=== PATIENT | female | born 1985 | race Caucasian/White ===

== ENCOUNTER 2019-04-26 22:55 | Inpatient (IN) | payer MEDICAID ==
[2019-04-26] MEDS: SOD CHLORIDE 0.9% 1,000 ML IV (23:22)
[2019-04-26] MEDS: HYDROmorphONE 0.5 MG/0.5 ML SYG IV (23:22)
[2019-04-27] MEDS ORDERED: NACL 0.9% 3 ML SYG IV (01:00)
[2019-04-27] MEDS ORDERED: BISACODYL (EC) 5 MG TAB PO (01:00)
[2019-04-27] MEDS ORDERED: ONDANSETRON 4 MG INJ IV (01:00)
[2019-04-27 01:11] LABS: ADD MAN DIFF? NO
[2019-04-27 01:13] LABS: WHITE BLOOD COUNT 14.4 10^3/ul (4.8-10.8)
[2019-04-27 01:13] LABS: BASOPHIL # 0.1 10^3/ul (0.0-0.1); BASOPHILS % 0.3 % (0.0-2.0); EOSINOPHILS # 0.1 10^3/ul (0.0-0.5); EOSINOPHILS % 0.8 % (0.0-7.0); HEMATOCRIT 37.9 % (37.0-47.0); HEMOGLOBIN 13.3 g/dl (12.0-16.0); LYMPHOCYTES # 1.4 10^3/ul (0.8-2.9); LYMPHOCYTES % 9.6 % (15.0-51.0); MEAN CORPUSCULAR HEMOGLOBIN 31.7 pg (29.0-33.0); MEAN CORPUSCULAR HGB CONC 35.1 g/dl (32.0-37.0); MEAN CORPUSCULAR VOLUME 90.5 fl (82.0-101.0); MEAN PLATELET VOLUME 10.1 fl (7.4-10.4); MONOCYTE # 0.9 10^3/ul (0.3-0.9); MONOCYTES % 6.4 % (0.0-11.0); NEUTROPHIL # 11.9 10^3/ul (1.6-7.5); NEUTROPHILS % 82.4 % (39.0-77.0); PLATELET COUNT 227 10^3/UL (140-415); RED BLOOD COUNT 4.19 10^6/ul (4.20-5.40); RED CELL DISTRIBUTION WIDTH 11.8 % (11.5-14.5)
[2019-04-27 01:35] LABS: INR 1.04; PROTIME 13.7 Sec (11.9-14.9); PT RATIO 1.1
[2019-04-27 01:39] LABS: ANION GAP 8 (5-13); BLOOD UREA NITROGEN 15 mg/dl (7-20); CALCIUM 9.1 mg/dl (8.4-10.2); CARBON DIOXIDE 23 mmol/L (21-31); CHLORIDE 106 mmol/L (97-110); CREATININE 0.77 mg/dl (0.44-1.00); Estimated GFR > 60 mL/min (>60); GLUCOSE 137 mg/dl (70-220); POTASSIUM 3.9 mmol/L (3.5-5.1); SODIUM 137 mmol/L (135-144)
[2019-04-27] MEDS: SOD CHLORIDE 0.9% 1,000 ML IV (03:16)
[2019-04-27] MEDS: morphine 2 MG INJ IV (03:57)
[2019-04-27] MEDS: HYDROCODONE/APAP (5/325) TAB PO ×2 (09:01→20:14)
[2019-04-28 05:50] LABS: ADD MAN DIFF? NO
[2019-04-28 05:54] LABS: BASOPHILS % 0.4 % (0.0-2.0); EOSINOPHILS # 0.3 10^3/ul (0.0-0.5); EOSINOPHILS % 3.4 % (0.0-7.0); HEMATOCRIT 36.9 % (37.0-47.0); HEMOGLOBIN 12.7 g/dl (12.0-16.0); LYMPHOCYTES # 3.2 10^3/ul (0.8-2.9); LYMPHOCYTES % 41.7 % (15.0-51.0); MEAN CORPUSCULAR HEMOGLOBIN 31.5 pg (29.0-33.0); MEAN CORPUSCULAR HGB CONC 34.4 g/dl (32.0-37.0); MEAN CORPUSCULAR VOLUME 91.6 fl (82.0-101.0); MEAN PLATELET VOLUME 10.2 fl (7.4-10.4); MONOCYTE # 0.7 10^3/ul (0.3-0.9); MONOCYTES % 9.3 % (0.0-11.0); NEUTROPHIL # 3.4 10^3/ul (1.6-7.5); NEUTROPHILS % 45.1 % (39.0-77.0); PLATELET COUNT 209 10^3/UL (140-415); RED BLOOD COUNT 4.03 10^6/ul (4.20-5.40); RED CELL DISTRIBUTION WIDTH 11.9 % (11.5-14.5)
[2019-04-28 05:54] LABS: WHITE BLOOD COUNT 7.6 10^3/ul (4.8-10.8)
[2019-04-28 06:26] LABS: PHOSPHORUS 3.9 mg/dl (2.5-4.9)
[2019-04-28 06:26] LABS: CHOLESTEROL 140 mg/dl (100-200); HDL CHOLESTEROL 28 mg/dl (34-82); LDL CHOLESTEROL,CALCULATED 93 mg/dl; TRIGLYCERIDES 97 mg/dl (0-149)
[2019-04-28 06:32] LABS: CARBON DIOXIDE 26 mmol/L (21-31); CREATININE 0.75 mg/dl (0.44-1.00); Estimated GFR > 60 mL/min (>60); GLUCOSE 108 mg/dl (70-220); POTASSIUM 4.2 mmol/L (3.5-5.1); SODIUM 138 mmol/L (135-144)
[2019-04-28 07:15] LABS: ANION GAP 6 (5-13); BLOOD UREA NITROGEN 8 mg/dl (7-20); CHLORIDE 106 mmol/L (97-110)
[2019-04-28 07:21] LABS: HEMOGLOBIN A1C 5.4 % (0-5.9)
[2019-04-28] MEDS: HEPARIN 5,000 UNIT/1 ML VIAL SC ×2 (17:53→21:11)
[2019-04-28] MEDS: POLYETHYLENE GLYCOL 17 GM PACKET PO (20:32)
[2019-04-28] MEDS: HYDROCODONE/APAP (5/325) TAB PO (23:20)
[2019-04-29] MEDS: HEPARIN 5,000 UNIT/1 ML VIAL SC ×3 (05:28→22:00)
[2019-04-29 07:16] LABS: ADD MAN DIFF? NO
[2019-04-29 07:21] LABS: WHITE BLOOD COUNT 8.7 10^3/ul (4.8-10.8)
[2019-04-29 07:21] LABS: BASOPHILS % 0.2 % (0.0-2.0); EOSINOPHILS # 0.4 10^3/ul (0.0-0.5); EOSINOPHILS % 4.1 % (0.0-7.0); HEMATOCRIT 39.2 % (37.0-47.0); HEMOGLOBIN 13.5 g/dl (12.0-16.0); LYMPHOCYTES # 2.8 10^3/ul (0.8-2.9); LYMPHOCYTES % 32.5 % (15.0-51.0); MEAN CORPUSCULAR HEMOGLOBIN 31.7 pg (29.0-33.0); MEAN CORPUSCULAR HGB CONC 34.4 g/dl (32.0-37.0); MEAN PLATELET VOLUME 10.3 fl (7.4-10.4); MONOCYTE # 0.8 10^3/ul (0.3-0.9); MONOCYTES % 9.4 % (0.0-11.0); NEUTROPHIL # 4.7 10^3/ul (1.6-7.5); NEUTROPHILS % 53.6 % (39.0-77.0); PLATELET COUNT 227 10^3/UL (140-415); RED BLOOD COUNT 4.26 10^6/ul (4.20-5.40); RED CELL DISTRIBUTION WIDTH 11.9 % (11.5-14.5)
[2019-04-29 07:40] LABS: PHOSPHORUS 4.7 mg/dl (2.5-4.9)
[2019-04-29 07:43] LABS: ANION GAP 7 (5-13); BLOOD UREA NITROGEN 13 mg/dl (7-20); CALCIUM 9.3 mg/dl (8.4-10.2); CARBON DIOXIDE 28 mmol/L (21-31); CHLORIDE 102 mmol/L (97-110); CREATININE 0.86 mg/dl (0.44-1.00); Estimated GFR > 60 mL/min (>60); GLUCOSE 109 mg/dl (70-220); SODIUM 137 mmol/L (135-144)
[2019-04-29] MEDS: POLYETHYLENE GLYCOL 17 GM PACKET PO ×2 (08:22→21:00)
[2019-04-29] MEDS ORDERED: DEXAMETHASONE 4 MG/ML 5 ML INJ (13:57)
[2019-04-29] MEDS ORDERED: NEOSTIGMINE 3 MG/3 ML SYRINGE (13:57)
[2019-04-29] MEDS ORDERED: MIDAZOLAM 1 MG/ML 2 ML INJ (13:57)
[2019-04-29] MEDS ORDERED: PROPOFOL 20 ML (13:57)
[2019-04-29] MEDS ORDERED: EPHEDrine 25 MG/5 ML SYG (13:57)
[2019-04-29] MEDS ORDERED: ONDANSETRON 4 MG INJ (13:57)
[2019-04-29] MEDS ORDERED: ROCURONIUM 50 MG INJ (13:57)
[2019-04-29] MEDS ORDERED: FENTAnyl 50 MCG/ML VIAL ×2 (13:57→20:33)
[2019-04-29] MEDS ORDERED: CEFAZOLIN 1 GM INJ (13:57)
[2019-04-29] MEDS ORDERED: GLYCOPYRROLATE 0.4 MG INJ (13:57)
[2019-04-29] MEDS ORDERED: KETOROLAC 30 MG INJ (14:03)
[2019-04-29] MEDS ORDERED: ROPIVACAINE 0.5 % 30 ML VIAL (14:05)
[2019-04-29] MEDS ORDERED: OXYCODONE/ACETAMINOPHEN (5/325) TAB PO ×2 (14:30)
[2019-04-29] MEDS ORDERED: TRIMETHOBENZAMIDE 100 MG/ML VIAL IM (14:30)
[2019-04-29] MEDS ORDERED: EPHEDrine 25 MG/5 ML SYG IV (14:30)
[2019-04-29] MEDS ORDERED: HYDROmorphONE 1 MG/5 ML IV SYRINGE IV ×3 (14:30)
[2019-04-29] MEDS ORDERED: ONDANSETRON 4 MG INJ IV (14:30)
[2019-04-29] MEDS ORDERED: MEPERIDINE 25 MG INJ IV (14:30)
[2019-04-29] MEDS ORDERED: DIPHENHYDRAMINE 50 MG INJ IV (14:30)
[2019-04-29] MEDS ORDERED: hydrALAzine 20 MG INJ IV (14:30)
[2019-04-29] MEDS ORDERED: ALBUTEROL 0.083% (NEB) 2.5 MG/3 ML AMP HHN (14:30)
[2019-04-29] MEDS ORDERED: MIDAZOLAM 1 MG/ML 2 ML INJ IV (14:30)
[2019-04-29] MEDS ORDERED: FENTAnyl 50 MCG/ML VIAL IV ×3 (14:30)
[2019-04-29] MEDS ORDERED: IPRATROPIUM (NEB) 0.5 MG/2.5 ML AMP HHN (14:30)
[2019-04-29] MEDS ORDERED: LABETALOL HCL 20MG INJ IV (14:30)
[2019-04-29] MEDS: POLYMYXIN/BACITRACIN 1L IRRIG (15:48)
[2019-04-29] MEDS ORDERED: SUGAMMADEX SODIUM 200 MG/2 ML VIAL IV (18:43)
[2019-04-29 19:40] LABS: IMMEDIATE SPIN CROSSMATCH 1 2
[2019-04-29] MEDS ORDERED: morphine 4 MG/ML VIAL IV (21:30)
[2019-04-29] MEDS ORDERED: NACL 0.9% 3 ML SYG IV (21:30)
[2019-04-29] MEDS: CEFAZOLIN 1 GM/50 ML (PMX) 50 ML IVPB (22:16)
[2019-04-29 22:22] LABS: ADD MAN DIFF? NO; BASOPHILS % 0.2 % (0.0-2.0); EOSINOPHILS % 0.1 % (0.0-7.0); HEMATOCRIT 39.9 % (37.0-47.0); HEMOGLOBIN 13.6 g/dl (12.0-16.0); LYMPHOCYTES # 0.8 10^3/ul (0.8-2.9); LYMPHOCYTES % 4.6 % (15.0-51.0); MEAN CORPUSCULAR HEMOGLOBIN 30.8 pg (29.0-33.0); MEAN CORPUSCULAR HGB CONC 34.1 g/dl (32.0-37.0); MEAN CORPUSCULAR VOLUME 90.3 fl (82.0-101.0); MEAN PLATELET VOLUME 9.7 fl (7.4-10.4); MONOCYTE # 0.7 10^3/ul (0.3-0.9); MONOCYTES % 3.7 % (0.0-11.0); PLATELET COUNT 218 10^3/UL (140-415); RED BLOOD COUNT 4.42 10^6/ul (4.20-5.40); RED CELL DISTRIBUTION WIDTH 12.1 % (11.5-14.5)
[2019-04-29 22:22] LABS: WHITE BLOOD COUNT 17.5 10^3/ul (4.8-10.8)
[2019-04-29] MEDS: D5W-0.45 NACL + KCL 20 MEQ 1,000 ML IV (22:44)
[2019-04-30] MEDS: SOD CHLORIDE 0.9% 1,000 ML IV (02:05)
[2019-04-30] MEDS: SOD CHLORIDE 0.9% 500 ML IV (03:57)
[2019-04-30] MEDS ORDERED: SOD CHLORIDE 0.9% 1,000 ML IV (04:00)
[2019-04-30] MEDS: D5W-0.45 NACL + KCL 20 MEQ 1,000 ML IV ×3 (05:24→22:00)
[2019-04-30] MEDS: CEFAZOLIN 1 GM/50 ML (PMX) 50 ML IVPB ×2 (05:24→12:48)
[2019-04-30] MEDS: HEPARIN 5,000 UNIT/1 ML VIAL SC (05:30)
[2019-04-30 06:04] LABS: ADD MAN DIFF? NO
[2019-04-30 06:05] LABS: BASOPHILS % 0.1 % (0.0-2.0); HEMOGLOBIN 11.3 g/dl (12.0-16.0); LYMPHOCYTES # 0.8 10^3/ul (0.8-2.9); MEAN CORPUSCULAR HEMOGLOBIN 30.9 pg (29.0-33.0); MEAN CORPUSCULAR HGB CONC 34.2 g/dl (32.0-37.0); MEAN CORPUSCULAR VOLUME 90.2 fl (82.0-101.0); MEAN PLATELET VOLUME 10.2 fl (7.4-10.4); MONOCYTES % 6.7 % (0.0-11.0); NEUTROPHIL # 13.2 10^3/ul (1.6-7.5); NEUTROPHILS % 87.9 % (39.0-77.0); PLATELET COUNT 197 10^3/UL (140-415); RED BLOOD COUNT 3.66 10^6/ul (4.20-5.40); RED CELL DISTRIBUTION WIDTH 12.6 % (11.5-14.5)
[2019-04-30 06:32] LABS: PHOSPHORUS 2.7 mg/dl (2.5-4.9)
[2019-04-30 06:32] LABS: MAGNESIUM 1.8 mg/dl (1.7-2.5)
[2019-04-30 06:41] LABS: ANION GAP 6 (5-13); BLOOD UREA NITROGEN 11 mg/dl (7-20); CALCIUM 8.2 mg/dl (8.4-10.2); CARBON DIOXIDE 25 mmol/L (21-31); CHLORIDE 106 mmol/L (97-110); CREATININE 0.79 mg/dl (0.44-1.00); Estimated GFR > 60 mL/min (>60); GLUCOSE 182 mg/dl (70-220); POTASSIUM 4.6 mmol/L (3.5-5.1); SODIUM 137 mmol/L (135-144)
[2019-04-30] MEDS: HYDROCODONE/APAP (5/325) TAB PO (08:03)
[2019-04-30] MEDS: POLYETHYLENE GLYCOL 17 GM PACKET PO ×2 (08:03→21:53)
[2019-04-30] MEDS: ENOXAPARIN 40 MG/0.4 ML SYG SC (08:48)
[2019-04-30] MEDS: HYDROCODONE/APAP (10/325) TAB PO ×2 (12:49→18:40)
[2019-04-30] MEDS: LACTULOSE 30ML CUP PO (12:54)
[2019-04-30] MEDS: DOCUSATE SODIUM 100 MG CAP PO (22:00)
[2019-05-01] MEDS: HYDROCODONE/APAP (10/325) TAB PO ×2 (00:28→06:07)
[2019-05-01] MEDS: BISACODYL (EC) 5 MG TAB PO (06:06)
[2019-05-01] MEDS: D5W-0.45 NACL + KCL 20 MEQ 1,000 ML IV ×3 (08:15→23:31)
[2019-05-01 08:32] LABS: ADD MAN DIFF? NO
[2019-05-01 08:45] LABS: BASOPHILS % 0.2 % (0.0-2.0); EOSINOPHILS # 0.1 10^3/ul (0.0-0.5); EOSINOPHILS % 0.9 % (0.0-7.0); HEMOGLOBIN 9.9 g/dl (12.0-16.0); LYMPHOCYTES % 17.5 % (15.0-51.0); MEAN CORPUSCULAR HEMOGLOBIN 30.8 pg (29.0-33.0); MEAN CORPUSCULAR HGB CONC 34.1 g/dl (32.0-37.0); MEAN CORPUSCULAR VOLUME 90.3 fl (82.0-101.0); MEAN PLATELET VOLUME 10.7 fl (7.4-10.4); MONOCYTE # 1.2 10^3/ul (0.3-0.9); MONOCYTES % 10.2 % (0.0-11.0); NEUTROPHIL # 8.2 10^3/ul (1.6-7.5); NEUTROPHILS % 70.8 % (39.0-77.0); PLATELET COUNT 171 10^3/UL (140-415); RED BLOOD COUNT 3.21 10^6/ul (4.20-5.40); RED CELL DISTRIBUTION WIDTH 12.8 % (11.5-14.5)
[2019-05-01 08:45] LABS: WHITE BLOOD COUNT 11.6 10^3/ul (4.8-10.8)
[2019-05-01 08:54] LABS: PHOSPHORUS 2.8 mg/dl (2.5-4.9)
[2019-05-01 08:58] LABS: ANION GAP 5 (5-13); BLOOD UREA NITROGEN 5 mg/dl (7-20); CALCIUM 8.2 mg/dl (8.4-10.2); CARBON DIOXIDE 29 mmol/L (21-31); CHLORIDE 103 mmol/L (97-110); CREATININE 0.62 mg/dl (0.44-1.00); Estimated GFR > 60 mL/min (>60); GLUCOSE 158 mg/dl (70-220); SODIUM 137 mmol/L (135-144)
[2019-05-01] MEDS: POLYETHYLENE GLYCOL 17 GM PACKET PO ×2 (09:44→21:00)
[2019-05-01] MEDS: ENOXAPARIN 40 MG/0.4 ML SYG SC (09:47)
[2019-05-01] MEDS: MAGNESIUM CITRATE 300 ML BTL PO (12:59)
[2019-05-01] MEDS: NEOMYC/POLYMYX/BACIT 30 GM OINT TOP ×2 (13:40→21:08)
[2019-05-02] MEDS: ACETAMINOPHEN 325 MG TAB PO (01:47)
[2019-05-02 05:47] LABS: ADD MAN DIFF? NO
[2019-05-02 05:55] LABS: BASOPHILS % 0.2 % (0.0-2.0); EOSINOPHILS # 0.1 10^3/ul (0.0-0.5); EOSINOPHILS % 1.2 % (0.0-7.0); HEMATOCRIT 30.5 % (37.0-47.0); HEMOGLOBIN 10.5 g/dl (12.0-16.0); LYMPHOCYTES # 2.7 10^3/ul (0.8-2.9); MEAN CORPUSCULAR HGB CONC 34.4 g/dl (32.0-37.0); MEAN PLATELET VOLUME 10.6 fl (7.4-10.4); MONOCYTE # 1.2 10^3/ul (0.3-0.9); MONOCYTES % 10.4 % (0.0-11.0); NEUTROPHIL # 7.2 10^3/ul (1.6-7.5); NEUTROPHILS % 63.8 % (39.0-77.0); PLATELET COUNT 200 10^3/UL (140-415); RED BLOOD COUNT 3.39 10^6/ul (4.20-5.40); RED CELL DISTRIBUTION WIDTH 12.6 % (11.5-14.5)
[2019-05-02 05:55] LABS: WHITE BLOOD COUNT 11.3 10^3/ul (4.8-10.8)
[2019-05-02 06:14] LABS: PHOSPHORUS 3.4 mg/dl (2.5-4.9)
[2019-05-02 06:14] LABS: MAGNESIUM 2.1 mg/dl (1.7-2.5)
[2019-05-02 06:24] LABS: ANION GAP 5 (5-13); BLOOD UREA NITROGEN 7 mg/dl (7-20); CALCIUM 8.7 mg/dl (8.4-10.2); CARBON DIOXIDE 29 mmol/L (21-31); CHLORIDE 102 mmol/L (97-110); CREATININE 0.65 mg/dl (0.44-1.00); Estimated GFR > 60 mL/min (>60); GLUCOSE 141 mg/dl (70-220); POTASSIUM 3.9 mmol/L (3.5-5.1); SODIUM 136 mmol/L (135-144)
[2019-05-02] MEDS: POLYETHYLENE GLYCOL 17 GM PACKET PO ×2 (09:00→21:00)
[2019-05-02] MEDS: ENOXAPARIN 40 MG/0.4 ML SYG SC (09:03)
[2019-05-02] MEDS: NEOMYC/POLYMYX/BACIT 30 GM OINT TOP ×2 (09:05→21:55)
[2019-05-02] MEDS: D5W-0.45 NACL + KCL 20 MEQ 1,000 ML IV (11:19)
[2019-05-03] MEDS: ACETAMINOPHEN 325 MG TAB PO (01:41)
[2019-05-03 06:28] LABS: ADD MAN DIFF? NO
[2019-05-03 06:31] LABS: WHITE BLOOD COUNT 9.5 10^3/ul (4.8-10.8)
[2019-05-03 06:31] LABS: BASOPHILS % 0.3 % (0.0-2.0); EOSINOPHILS # 0.2 10^3/ul (0.0-0.5); EOSINOPHILS % 2.5 % (0.0-7.0); HEMATOCRIT 31.2 % (37.0-47.0); HEMOGLOBIN 10.6 g/dl (12.0-16.0); LYMPHOCYTES % 31.2 % (15.0-51.0); MEAN CORPUSCULAR HEMOGLOBIN 30.8 pg (29.0-33.0); MEAN CORPUSCULAR VOLUME 90.7 fl (82.0-101.0); MEAN PLATELET VOLUME 10.5 fl (7.4-10.4); MONOCYTE # 0.8 10^3/ul (0.3-0.9); MONOCYTES % 8.7 % (0.0-11.0); NEUTROPHIL # 5.4 10^3/ul (1.6-7.5); NEUTROPHILS % 56.9 % (39.0-77.0); PLATELET COUNT 225 10^3/UL (140-415); RED BLOOD COUNT 3.44 10^6/ul (4.20-5.40); RED CELL DISTRIBUTION WIDTH 12.5 % (11.5-14.5)
[2019-05-03] MEDS: ENOXAPARIN 40 MG/0.4 ML SYG SC (08:45)
[2019-05-03] MEDS: POLYETHYLENE GLYCOL 17 GM PACKET PO ×2 (08:46→20:53)
[2019-05-03] MEDS: NEOMYC/POLYMYX/BACIT 30 GM OINT TOP ×2 (08:46→20:49)
[2019-05-04] MEDS: POLYETHYLENE GLYCOL 17 GM PACKET PO (08:17)
[2019-05-04] MEDS: ENOXAPARIN 40 MG/0.4 ML SYG SC (08:17)
[2019-05-04] MEDS: NEOMYC/POLYMYX/BACIT 30 GM OINT TOP (10:47)
== END 2019-05-04 17:41 | disposition home or self-care (01) | DRG 494 ==
LOC: E/R 22:55 → PP2 04-27 00:48
PROC: 0PSF04Z Reposition Right Humeral Shaft with Internal Fixation Device, Open Approach (ICD-10-PCS; principal; 2019-04-29 14:00)
PROC: 30233N1 Transfusion of Nonautologous Red Blood Cells into Peripheral Vein, Percutaneous Approach (ICD-10-PCS; 2019-04-29 14:53)
DX: S42.491A Other displaced fracture of lower end of right humerus, initial encounter for closed fracture (principal); E66.9 Obesity, unspecified; Z68.31 Body mass index [BMI] 31.0-31.9, adult; D72.829 Elevated white blood cell count, unspecified; D64.9 Anemia, unspecified; W18.30XA Fall on same level, unspecified, initial encounter; Y92.39 Other specified sports and athletic area as the place of occurrence of the external cause
CPT/HCPCS: 36415; 36430; 71045; 73060-RT; 73080-RT; 73200; 80048; 80061; 83036; 83735; 84100; 84703; 85025; 85610; 85730; 86850; 86900; 86901; 86920; 93005; 96374; 97161; 97167; 99285-25